=== PATIENT | male | born 1965 | race Caucasian/White ===

== ENCOUNTER 2024-02-03 11:31 | Outpatient (AMB) | payer OTHER, SELFPAY ==
--- NOTE | 2024-02-03 11:41 | MHC.PC.OV ---
Vital Signs 02/03/24 11:47 Height 5 ft 10.28 in Weight 269 lb BMI 38.3 BP 120/80 Blood Pressure Location Lt brachial Position Sitting Respiration 20 Pulse 78 Pulse Source Palpation Intake Visit Reasons: [facility] from [facility] Intake Note: er follow up [stroke] Allergies No Known Allergies Allergy (Verified 02/03/24 11:41) Tobacco use date assessed: 02/03/24 Dental Screening Dental Screen Date: 02/03/24 Did you have a dental visit in the last 12 months?: No Did you have a dental problem in the last 6 months where you did not have access to dental care?: Yes Was dental information given to patient?: Yes HPI HPI Comments History of Present Illness Details 58 year old male with past medical history of PE previously not on AC, recent CVA presenting to [facility] care/hospital follow up He was hospitalized from January-January 15/2024 at [facility]. He presented with 2 day history of gait disturbance, dizziness. CTA head negative. bilateral mild upper cervical adenopathy noted. MRI brain showed small actue infarct in the left thalamus. Started on dual antiplalet asa plavix. Echo normal. Tele no arrythmia. Has f/up stroke clinic. Recommended hypercoaguable work up but not performed ROS CONSTITUTIONAL: Denies weight loss, fever and chills. HEENT: Denies changes in vision and hearing. RESPIRATORY: Denies SOB and cough. CV: Denies palpitations and CP GI: Denies abdominal pain, nausea, vomiting and diarrhea. : Denies dysuria and urinary frequency. MSK: Denies new myalgia and joint pain. SKIN: Denies rash and pruritus. NEUROLOGICAL: Denies headache PSYCHIATRIC: Denies recent changes in mood. PHYSICAL EXAM: GENERAL: Alert and oriented x 3. NAD EYES: EOMI. Anicteric. HENT: Moist mucous membranes. No scleral icterus. palpable cervical LN LUNGS: Clear to auscultation bilaterally. CARDIOVASCULAR: Regular rate and rhythm. No murmur. No JVD. ABDOMEN: Soft, non-tender +bs EXTREMITIES: No edema. Non-tender. SKIN: No rashes or lesions. Warm. NEUROLOGIC: No focal neurological deficits. CN II-XII grossly intact PSYCHIATRIC: Cooperative. 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 77869 - PHQ-9 Billing: Patient declined-do not bill Source: Developed by Drs. Narinder Doe, Ismael Rodrigues and colleagues, with an educational adam from [employer]. Thrive Questionnaire Date Thrive assessed: 02/03/24 I am a: Patient What is your living situation today?: I have a steady place to live Within the past 12 months, did the food you bought not last and you didn't have the money to get more?: Never true Within the past 12 months, did you worry whether your food would run out before you got money to buy more?: Never true Do you have trouble paying for medicines?: No Do you have trouble getting transportation to medical appointments?: No Do you have trouble paying your heating and electricity bill?: No Do you have trouble taking care of your child, family member or friend?: No Do you have trouble with day-to-day activities such as bathing, preparing meals, shopping, managing finances, etc.?: No Are you currently unemployed and looking for a job?: No Are you interested in more education?: No Please select the resources that you would like help with: None Currently or been in a relationship where the following occur: No concerns reported THRIVE Score: 0 AUDIT C Alcohol Use Questionnaire (AUDIT-C) 1. How often do you have a drink containing alcohol?: 2-3 times a week 2. How many drinks containing alcohol do you have on a typical day when you are drinking?: 7 to 9 3. How often do you have six or more drinks on one occasion?: Weekly Total Score: 9 Score Reviewed/Action Taken: Yes RAMONITA-7 AMB Questionnaire RAMONTIA-7 Date RAMONITA - 7 assessed: 02/03/24 Source: Developed by Drs. Narinder Doe, Ismael Rodrigues and colleagues, with an educational adam from [employer]. RAMONITA-7 Assessment Billing RAMONITA-7 Assessment Tool: pt declined-do not bill Physical exam (Primary Care) Vital Signs: Last Vital Signs Pulse 78 02/03/24 11:47 Resp 20 02/03/24 11:47 BP 120/80 02/03/24 11:47 BMI result Body Mass Index 38.3 Tobacco/Smoking Status: Tobacco use Status Tobacco use date assessed 02/03/24 02/03/24 11:46 Patient Tobacco Use Status Never used Tobacco 02/03/24 11:46 e-Cigarette/Vaping Use Never Used 02/03/24 11:46 Thrive Assessment: Date of Thrive Assessment Date Thrive assessed 02/03/24 02/03/24 11:59 Currently or been in a relationship where the following occur: No concerns reported Assessment and Plan Assessment & Plan (1) Encounter to establish care: Code(s): Z76.89 - Persons encountering health services in other specified circumstances Plan: 58 year old male presenting to establish care. Past medical, surgical, social and family history reviewed (2) History of pulmonary embolism: Code(s): Z86.711 - Personal history of pulmonary embolism Plan: hypercoaguable labs ordered (3) Cervical adenopathy: Code(s): R59.0 - Localized enlarged lymph nodes (4) Neck pain on left side: Code(s): M54.2 - Cervicalgia (5) CVA (cerebral vascular accident): Code(s): I63.9 - Cerebral infarction, unspecified Qualifiers: CVA mechanism: unspecified Qualified Code(s): I63.9 - Cerebral infarction, unspecified Plan: follow up stroke clinic Orders: Orders Lyme IgG/IgM w/reflex to WB 02/03/24 Z86.711 - Personal history of pulmonary embolism, R59.0 - Localized enlarged lymph nodes, M54.2 - Cervicalgia, I63.9 - Cerebral infarction, unspecified Lupus Anticoagulant Panel 02/03/24 Z86.711 - Personal history of pulmonary embolism, R59.0 - Localized enlarged lymph nodes, M54.2 - Cervicalgia, I63.9 - Cerebral infarction, unspecified Homocysteine 02/03/24 Z86.711 - Personal history of pulmonary embolism, R59.0 - Localized enlarged lymph nodes, M54.2 - Cervicalgia, I63.9 - Cerebral infarction, unspecified Mixing Study (PT/PTT) 02/03/24 Z86.711 - Personal history of pulmonary embolism, R59.0 - Localized enlarged lymph nodes, M54.2 - Cervicalgia, I63.9 - Cerebral infarction, unspecified Monotest 02/03/24 Z86.711 - Personal history of pulmonary embolism, R59.0 - Localized enlarged lymph nodes, M54.2 - Cervicalgia, I63.9 - Cerebral infarction, unspecified Comprehensive Met. Panel 02/03/24 Z86.711 - Personal history of pulmonary embolism, R59.0 - Localized enlarged lymph nodes, M54.2 - Cervicalgia, I63.9 - Cerebral infarction, unspecified Referrals Ear/Nose/Throat Referral I63.9 - Cerebral infarction, unspecified, M54.2 - Cervicalgia, R59.0 - Localized enlarged lymph nodes, Z86.711 - Personal history of pulmonary embolism Medications: New pravastatin 40 mg PO DAILY 90 tabs 3RF Coding Level of Care Code Est Pt Level 4 (18757) Diagnoses Encounter to establish care Z76.89 History of pulmonary embolism Z86.711 Cervical adenopathy R59.0 Neck pain on left side M54.2 Cerebrovascular accident (CVA), unspecified mechanism I63.9 CVA mechanism: unspecified
[2024-02-03 11:47] VITALS: BP 120/80; PULSE 78; RESP 20; BMI 38.3
== END 2024-02-03 12:30 | disposition home or self-care (01) ==
PROVIDERS: Visit Provider Internal Medicine
DX: R59.0 Localized enlarged lymph nodes (principal); M54.2 Cervicalgia; Z86.73 Personal history of transient ischemic attack (TIA), and cerebral infarction without residual deficits; Z76.89 Persons encountering health services in other specified circumstances; Z86.711 Personal history of pulmonary embolism
CPT/HCPCS: 99214

== ENCOUNTER 2024-04-07 15:57 | Outpatient (AMB) | payer OTHER, SELFPAY ==
--- NOTE | 2024-04-07 16:01 | A.OFFPC_ITS ---
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 He was discharged with a few days of losartan but stopped when rx ended as blood pressures have been normal. He says since his CVA has had multiple fairly severe headaches. Start of dull in the morning and then worsen in severity over the course of the day. When his headaches are bad his blood pressure is elevated. Otherwise his blood pressure has been normal. He was hospitalized from January-January 15/2024 at [facility]. He presented with 2 day history of gait disturbance, dizziness. CTA head negative. bilateral mild upper cervical adenopathy noted. MRI brain showed small actue infarct in the left thalamus. Started on dual antiplalet asa plavix. Off plavix. Couldnt tolerate atorvastatin. doing ok Tele no arrythmia. Has f/up stroke clinic -he says he never heard from them for an appointment. Recommended hypercoaguable work up but not performed or referred to hematology. Echo reviewed today with low normal EF 50-55%, inferior basal hypokinesis noted Reports frequent abd pain. Goes from mid right abdomen down to upper right thigh. Does not feel like its coming around back. Feels the pain more when he is laying down. More frequent recently. No worse with eating or not eating. Denies bowel changes. Never had colonoscopy ROS see HPI PHYSICAL EXAM: GENERAL: Alert and oriented x 3. NAD EYES: EOMI. Anicteric. HENT: Moist mucous membranes. No scleral icterus. palpable cervical LN LUNGS: Clear to auscultation bilaterally. CARDIOVASCULAR: Regular rate and rhythm. No murmur. No JVD. ABDOMEN: Soft, non-tender +bs, ventral herniation EXTREMITIES: No edema. Non-tender. SKIN: No rashes or lesions. Warm. NEUROLOGIC: No focal neurological deficits. CN II-XII grossly intact PSYCHIATRIC: Cooperative. 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 2. Feeling down, depressed, or hopeless: not at all 3. Trouble falling or staying asleep, or sleeping too much: more than half the days 4. Feeling tired or having little energy: more than half the days 5. Poor appetite or overeating: more than half the days 6. Feeling bad about yourself - or that you are a failure or have let yourself or your family down: not at all 7. Trouble concentrating on things, such as reading the newspaper or watching television: not at all 8. Moving or speaking so slowly that other people could have noticed. Or the opposite - being so fidgety or restless that you have been moving around a lot more than usual: more than half the days 9. Thoughts that you would be better off or of hurting yourself in some way: not at all Depression Screening Interpretation: Positive Depression Screening Follow-up: Declines treatment Depression Screening Done: Yes 99364 - PHQ-9 Billing: Yes Source: Developed by Drs. Narinder Doe, Emeli Tai, Ismael Maldonado and colleagues, with an educational adam from [employer]. Thrive Questionnaire Date Thrive assessed: 04/07/24 I am a: Patient What is your living situation today?: I have a steady place to live Within the past 12 months, did the food you bought not last and you didn't have the money to get more?: Never true Within the past 12 months, did you worry whether your food would run out before you got money to buy more?: Never true Do you have trouble paying for medicines?: No Do you have trouble getting transportation to medical appointments?: No Do you have trouble paying your heating and electricity bill?: No Do you have trouble taking care of your child, family member or friend?: No Do you have trouble with day-to-day activities such as bathing, preparing meals, shopping, managing finances, etc.?: No Are you currently unemployed and looking for a job?: No Are you interested in more education?: No Please select the resources that you would like help with: None Currently or been in a relationship where the following occur: No concerns reported THRIVE Score: 0 AUDIT C Alcohol Use Questionnaire (AUDIT-C) 1. How often do you have a drink containing alcohol?: 2-3 times a week 2. How many drinks containing alcohol do you have on a typical day when you are drinking?: 3 or 4 3. How often do you have six or more drinks on one occasion?: Monthly Total Score: 6 RAMONITA-7 AMB Questionnaire RAMONITA-7 Date RAMONITA - 7 assessed: 02/03/24 Feeling nervous, anxious, or on edge: 0 = Not at all Not being able to stop or control worryin = Not at all Worrying too much about different things: 0 = Not at all Trouble relaxin = Not at all Being so restless that it is hard to sit still: 0 = Not at all Becoming easily annoyed or irritable: 0 = Not at all Feeling afraid as if something awful might happen: 0 = Not at all Total RAMONITA-7 score (0-4 normal; 5-9 mild; 10-14 moderate; 15-21 severe): 0 Source: Developed by Drs. Narinder Doe, Emeli Tai, Ismael Maldonado and colleagues, with an educational adam from [employer]. RAMONITA-7 Assessment Billing RAMONITA-7 Assessment Tool: RAMONITA-7 Assessment 67516 Physical exam (Primary Care) Vital Signs: Last Vital Signs Pulse 101 H 04/07/24 16:05 Resp 16 04/07/24 16:05 BP 114/74 04/07/24 16:05 Pulse Ox 97 04/07/24 16:05 Oxygen Delivery Method Room Air 04/07/24 16:05 BMI result Body Mass Index 37.3 Tobacco/Smoking Status: Tobacco use Status Tobacco use date assessed 02/03/24 04/07/24 16:09 Patient Tobacco Use Status Never used Tobacco 04/07/24 16:09 e-Cigarette/Vaping Use Never Used 04/07/24 16:09 Depression Screening Interpretation: Positive Depression Screening Follow-up: Declines treatment Thrive Assessment: Date of Thrive Assessment Date Thrive assessed 04/07/24 04/07/24 16:12 Currently or been in a relationship where the following occur: No concerns reported Coding Level of Care Code Est Pt Level 4 (76290) Est Pt Prev Care 40-64y(30879) Diagnoses Physical exam Z00.00 Frequent headaches R51.9 History of hypercoagulable state Z86.2 Generalized abdominal pain R10.84 Abdominal location: generalized Additional Codes RAMONITA-7 Assessment Billing - RAMONITA-7 Assessment Tool: RAMONITA-7 Assessment 39356 ([id number]) Assessment & Plan Assessment & Plan (1) Physical exam: Code(s): Z00.00 - Encounter for general adult medical examination without abnormal findings Category: Medical Plan: Preventive measures for age reviewed Recommend colon cancer screening. Declines colonoscopy. cologuard sent (2) Frequent headaches: Code(s): R51.9 - Headache, unspecified Category: Medical Plan: Narrow oropharynx, [place], apnea-sleep study ordered Referral to neurology (3) History of hypercoagulable state: Code(s): Z86.2 - Personal history of diseases of the blood and blood-forming organs and certain disorders involving the immune mechanism Category: Medical Plan: Referral to hematology for hypercoaguable work up (4) Abdominal pain: Code(s): R10.9 - Unspecified abdominal pain Category: Medical Qualifiers: Abdominal location: generalized Qualified Code(s): R10.84 - Generalized abdominal pain Plan: CT abd/pelvis ordered. Orders: Orders Prostate Specific Antigen 04/07/24 Z12.5 - Encounter for screening for malignant neoplasm of prostate RT home sleep study 04/07/24 R06.81 - Apnea, not elsewhere classified, R06.83 - Snoring CT abdomen pelvis wo/w IV con 04/07/24 K43.9 - Ventral hernia without obstruction or gangrene, R10.9 - Unspecified abdominal pain Lyme IgG/IgM w/reflex to WB 04/07/24 M25.462 - Effusion, left knee Referrals Hematology & Oncology Referral I63.9 - Cerebral infarction, unspecified, Z86.2 - Personal history of diseases of the blood and blood-forming organs and certain disorders involving the immune mechanism, Z86.711 - Personal history of pulmonary embolism Cardiology Referral I63.9 - Cerebral infarction, unspecified, R93.1 - Abnormal findings on diagnostic imaging of heart and coronary circulation Cologuard Test Z12.11 - Encounter for screening for malignant neoplasm of colon, Z12.12 - Encounter for screening for malignant neoplasm of rectum Neurology Referral I63.9 - Cerebral infarction, unspecified, R06.81 - Apnea, not elsewhere classified, R06.83 - Snoring, R51.9 - Headache, unspecified Medications: New pravastatin 40 mg PO BEDTIME 90 tabs 3RF
[2024-04-07 16:05] VITALS: BP 114/74; PULSE 101; RESP 16; O2SAT 97; BMI 37.3
== END 2024-04-07 17:05 | disposition home or self-care (01) ==
PROVIDERS: PCP Internal Medicine; Visit Provider Internal Medicine
DX: Z00.00 Encounter for general adult medical examination without abnormal findings (principal); R51.9 Headache, unspecified; R10.84 Generalized abdominal pain; Z86.2 Personal history of diseases of the blood and blood-forming organs and certain disorders involving the immune mechanism

== ENCOUNTER → 2024-04-07 15:57 | Outpatient (BNVA) | payer OTHER, SELFPAY | PROVIDERS: PCP Internal Medicine; Visit Provider Internal Medicine | DX: Z00.01 Encounter for general adult medical examination with abnormal findings (principal); R51.9 Headache, unspecified; R10.84 Generalized abdominal pain; Z86.2 Personal history of diseases of the blood and blood-forming organs and certain disorders involving the immune mechanism | CPT/HCPCS: 96127 ==

== ENCOUNTER → 2024-04-16 09:30 | Outpatient (REF) | payer OTHER, SELFPAY | LOC: HO.SL 09:30 | PROVIDERS: PCP Internal Medicine; Visit Provider Internal Medicine | DX: G47.33 Obstructive sleep apnea (adult) (pediatric) (principal); R06.81 Apnea, not elsewhere classified; R06.83 Snoring | CPT/HCPCS: 95806 ==

== ENCOUNTER → 2024-04-17 09:40 | Outpatient (BNV) | payer OTHER, SELFPAY | PROVIDERS: PCP Internal Medicine; Visit Provider Internal Medicine | DX: G47.33 Obstructive sleep apnea (adult) (pediatric) (principal) | CPT/HCPCS: 95806 ==

== ENCOUNTER 2024-07-15 08:36 | Outpatient (AMB) | payer OTHER, SELFPAY ==
--- NOTE | 2024-07-15 08:37 | A.OFFVIS_ITS ---
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 The pleasant 58-year-old male who in 2021 had unprovoked pulmonary embolism. Was treated for year with oral anticoagulant. He does not recall having a full hypercoagulable workup as he said the journal box inspector at that time had told him that he was on anticoagulation and could not complete the testing. He was treated with Eliquis for year and then this was discontinued. He was doing well till last summer when he had sudden-onset neurologic symptoms and was noted to have new CVA. Since then he has been having some frequent headaches. No focal neurologic deficits. He has been started on aspirin and pravastatin therapy. Reviewed the CTA from [facility] appears to be not having any significant intracranial or extracranial disease. Echocardiogram done was showing normal LV ejection fraction with mildly dilated left atrium without other major valvular abnormalities. He denies any exertional chest pain or shortness of breath. His last LDL was 102 mg/dL. 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 Current occupational exposures/hazards: No Cognitive needs: No Hearing needs: No Vision needs: No Review of Systems Const Denies chills, Denies daytime sleepiness, Denies fatigue, Denies fever(s), Denies frequent falls, Denies poor appetite, Denies snoring, Denies stops deneen thing during sleep, Denies weakness, Denies weight gain and Denies weight loss Eyes Denies loss of vision ENT Reports dizziness and Denies hearing loss Card Denies chest pain, Denies claudication, Denies leg edema, Denies lightheadedness, Denies palpitations, Denies dyspnea, Denies dyspnea on exertion and Denies orthopnea Resp Denies cough, Denies excessive phlegm production, Denies dyspnea, Denies dyspnea on exertion, Denies snoring and Denies wheezing GI Denies abdominal pain, Denies hematochezia, Denies change in bowel habits, Denies nausea and Denies vomiting Denies dysuria and Denies urinary frequency Musc Denies arthralgias, Denies muscle weakness, Denies numbness and Denies other (frequent falls) Skin/Breast Denies nail changes and Denies rash Neuro Denies Abnormal speech present, Reports dizziness, Denies frequent falls, Denies loss of vision, Denies memory loss, Denies numbness and Denies weakness Psych Denies depression and Denies memory loss Endo Denies fatigue and Denies palpitations Alfredo/Lymph Reports easy bruising and Reports other (anemia) Aller/Immun Denies wheezing Physical Exam Vital Signs: Last Vital Signs Pulse 75 07/15/24 08:39 BP 120/80 07/15/24 08:39 BMI result Body Mass Index 35.8 Const General: cooperative, comfortable, no acute distress, alert, awake and Physically active Nutritional Appearance: obese Orientation/consciousness: patient oriented x3 Limitations: no limitations HEENT Head: Yes normocephalic and Yes atraumatic Neck Neck: Yes trachea midline, Yes supple and Yes no JVD Resp Effort & Inspection: normal respiratory effort Auscultation: clear to auscultation bilaterally Cardio Jugular venous distension: no JVD Palpation: normal PMI Rate: regular rate Rhythm: regular rhythm Heart sounds: S1 normal heart sound present, S2 normal heart sound present, no click, no gallops, no murmurs and no rubs GI Auscultation: normal bowel sounds Skin General skin exam: no rashes or lesions noted Neuro General: patient oriented x3 and no focal motor deficits Speech: No Abnormal speech present Extrem General: Yes no clubbing, cyanosis or edema Office Procedures EKG Details: EKG shows normal sinus rhythm with voltage criteria for LVH [id number], Complete Assessment & Plan Assessment & Plan (1) CVA (cerebral vascular accident): Code(s): I63.9 - Cerebral infarction, unspecified Category: Medical Qualifiers: CVA mechanism: unspecified Qualified Code(s): I63.9 - Cerebral infarction, unspecified Plan: Middle-aged man with no obvious risk factors except for pulmonary embolic event 2 years ago unprovoked treated for year with anticoagulation as per guidelines followed by a stroke last summer. This is concerning for possibility of hypercoagulable state. Have taken the liberty to refer to hematology for further workup. Meanwhile without any obvious diagnose I think he needs further cardiac workup to evaluate for cardioembolic source with a structural evaluation as well as evaluation for possible atrial fibrillation. Echocardiogram does show mild left atrial enlargement for unclear reason with low normal LV ejection fraction. Question underlying obstructive sleep apnea. This needs to be pursued as a workup. I would meanwhile suggest him to undergo a 30 day event monitor with mobile telemetry to assess for presence of atrial fibrillation. Also suggest a transesophageal echocardiogram to evaluate for and confirm absence PFO as well as any other potential cardiac source for embolic events. This was discussed with him. Given unknown source of stroke, small vessel disease or plaque in the aorta is possible and recommend high-intensity statin therapy. Have taken the liberty to switch his pravastatin to atorvastatin 40 mg daily. Follow-up lipid panel in 2 months time to target goal LDL closer to 60 mg/dL. For now continue low-dose aspirin therapy. Workup for stroke and management plan was discussed in details. He is agreeable. Will follow up in the clinic in 2 months time, sooner p.r.n.. Thank you for allowing me to partake in his care Orders: Orders ECG 30 day event monitor Today I63.9 - Cerebral infarction, unspecified CA echo transesophageal w con Today I63.9 - Cerebral infarction, unspecified Referrals Hematology & Oncology Referral I63.9 - Cerebral infarction, unspecified Medications: New atorvastatin 40 mg PO DAILY 30 tabs 5RF Coding Level of Care Code New Pt Level 4 (71522) Complex EM visit Add On G2211 Diagnoses Cerebrovascular accident (CVA), unspecified mechanism I63.9 CVA mechanism: unspecified CPT Codes EKG - CPT: 63636-[id number], Complete ([id number])
[2024-07-15 08:39] VITALS: BP 120/80; PULSE 75; BMI 35.8
--- OUTSIDE RECORDS SUMMARY | 2024-07-15 08:41 | XMS_ITS | Continuity of Care Document ---
Author Organization [place] - [facility], [facility] Address [address] [place] [address] Care Team Providers Care Retail Pharmacy Technician Name Role Phone BRIANA WICK Primary Care Provider Assessment Encounter Date Assessment Date Assessment LastModified by Organization Details LastModified Time 04/16/2024 04/16/2024 Physical examina tion was benign today, there is no evidence of enlargement of lymph nodes as noted on his CT angio from January. He does report some intermittent discomfort in the area along his right and left sternocleidomastoid muscle without any focal lymph node or specific mass. No specific intervention is recommended, he may follow-up as needed [email or web address] Not available 04/16/2024 16:14:07 Plan of Treatment Reminders Order Date Submit Date Provider Last Modified By Organization Details Last Modified Time Details Appointments None record ed. Lab None record ed. Referral None record ed. Procedures None record ed. Surgeries None record ed. Imaging None record ed. Medication Orders None record ed. Patient TargetsNo targets recorded. Patient InstructionsNo instructions recorded. Reason for Referral None Reported. Problems Name Problem SNOMED Code Status Onset Date Resolution Date Notes Provider Name and Address Organization Details Recorded Time Cervical lymphadenitis 4188684 Active 2023 ZHAO LAWS MD [address] [place] [address], [id number], [place] - [facility] 16:13:22 Problem Notes None recorded. Medical Equipment None Reported. Medications Name Sig Start Date Stop Date Status Note LastModified by Organization Details LastModified Time atorvastati n 80 mg tablet TAKE 1 TABLET BY MOUTH DAILY AT BEDTIME active Not Available Not Available No t Available pravastatin 40 mg tablet TAKE 1 TABLET BY MOUTH DAILY active Not Available Not Available No t Available clopidogrel 75 mg tablet TAKE 1 TABLET BY MOUTH DAILY FOR 21 DAYS active Not Available Not Available No t Available aspirin 81 mg tablet,cristina yed release TAKE 1 TABLET BY MOUTH DAILY active Not Available Not Available No t Available meclizine 25 mg tablet TAKE 1 TABLET BY MOUTH THREE TIMES DAILY X 7 DAYS NEEDED FOR DIZZINESS 04/16 completed Not Available Not Available Not Available oxycodone 5 mg tablet TAKE 2 TABLETS BY MOUTH EVERY 6 HOURS FOR 3 DAYS NEEDED FOR PAIN 04/16 completed Not Available Not Available Not Available Vitals Date Recorded Body height Body mass index (BMI) Body weight Provider Name and Address Organization Details Last Updated DateTime 04/16/2024 180.34 cm 36.4 kg/m2 890710.61 g Lalita Mathews [place] - [facility] 04/16/2024 15:38:51 Social History None recorded. Functional Status None recorded. Mental Status None recorded. Family History Nothing Reported. Medical History Condition Response Hyperlipidemia Y Headaches Y Migraines Y Stroke Y Past Encounters Encounter ID Performer Location Encounter Start Date Encounter Closed Date Diagnosis/Indication Diagnosis SNOMED-CT Code Diagnosis ICD10 Code Diagnosis Note [id number] ZHAO LAWS MD [facility] [address] [address] 04/16/2024 15:35:24 04/16/2024 16:18:22 Cervical lymphadenitis 8902968 I88.9 Health Concerns Section Related Observation LastModified by Organization Detai ls LastModified Time None Recorded Concern Status LastModified by Organization Details LastModified Time None Recorded Payers Encounter Date Sequence Insurance Name Policy Number Policy Vega Covered Member ID Vega Member ID Guarantor Name 04/16/2024 1 [facility] [id number] 1 Gelacio Reyes [id number] Gelacio Reyes Notes Date Note Type Note Provider Name and Address Organization Details Recorded Time text/html enlarged lymph nodeintermittent sore in neck over past 6 monthsdental extractions a few months ago, no complicationstobacco - deniesno dysphagia for liquids or solids 01/14/2024 ER visit for change in gait and dizziness. Workup with MRI showed acute small infarct of thalamus, anticoagulation initiated. Additional imaging with CTA of the neck with incidental finding of bilateral level 2 lymph nodes measuring 16 mm, bilateral suboccipital lymph node measuring 11 mm on the left. 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
--- OUTSIDE RECORDS SUMMARY | 2024-07-15 08:41 | XMS_ITS | Data Portability ---
Author Organization [place] - [facility], [facility] Address [address] [place] [phone] Care Team Providers Care Director Public Policy Name Role Phone KathyBRIANA MCNALLY Primary Care Provider Assessment Encounter Date Assessment [...] Address Organization Details Recorded Time Cervical lymphadenitis 1121420 Active 2023 ZHAO LAWS MD [address] [facility] [address], [place], [address] [place] [facility] 16:13:22 Problem Notes None recorded. Medical Equipment [...] Updated DateTime 04/16/2024 180.34 cm 36.4 kg/m2 908455.61 g Lalita Mathews [place] - [facility] 04/16/2024 15:38:51 Social History None recorded. Functional Status None recorded. Mental Status None recorded. Family History Nothing Reported. Medical History Condition Response Hyperlipidemia Y Migraines Y Stroke Y Headaches Y Past Encounters Encounter ID Performer Location Encounter Start Date Encounter Closed Date Diagnosis/Indication Diagnosis SNOMED-CT Code Diagnosis ICD10 Code Diagnosis Note [id number] ZHAO LAWS MD [facility] [address] [address] 04/16/2024 15:35:24 04/16/2024 16:18:22 Cervical lymphadenitis 8550940 I88.9 Health Concerns Section Related Observation LastModified by Organization Detai ls LastModified Time None Recorded Concern Status LastModified by Organization Details LastModified Time None Recorded Advance Directives Directive None Recorded Payers Encounter Date Sequence Insurance Name Policy Number Policy Vega Covered Member ID Vega Member ID Guarantor Name 04/16/2024 1 [facility] [id number] 1 Gelacio Reyes [id number] Gelacio Reyes Notes Date Note Type Note Provider Name and Address Organization Details Recorded Time 4 text/html enlarged lymph nodeintermittent sore in neck [...] - 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
== END 2024-07-15 09:12 | disposition home or self-care (01) ==
PROVIDERS: PCP Internal Medicine; Visit Provider Internal Medicine Cardiovascular Disease
DX: I63.9 Cerebral infarction, unspecified (principal)
CPT/HCPCS: 93010; 99204

== ENCOUNTER → 2024-07-15 08:36 | Outpatient (BNVA) | payer OTHER, SELFPAY | PROVIDERS: PCP Internal Medicine; Visit Provider Internal Medicine Cardiovascular Disease | DX: Z86.73 Personal history of transient ischemic attack (TIA), and cerebral infarction without residual deficits (principal); Z86.711 Personal history of pulmonary embolism; Z79.82 Long term (current) use of aspirin; Z79.899 Other long term (current) drug therapy | CPT/HCPCS: 93005 ==

== ENCOUNTER → 2024-07-24 11:15 | Outpatient (BNV) | payer OTHER, SELFPAY | PROVIDERS: PCP Internal Medicine; Visit Provider Internal Medicine Cardiovascular Disease | DX: Q21.12 Patent foramen ovale (principal); Q24.8 Other specified congenital malformations of heart; I34.0 Nonrheumatic mitral (valve) insufficiency; I70.0 Atherosclerosis of aorta; I37.1 Nonrheumatic pulmonary valve insufficiency; I35.1 Nonrheumatic aortic (valve) insufficiency | CPT/HCPCS: 76376; 93315; 93320; 93325 ==

== ENCOUNTER 2024-07-24 11:28 | Day surgery (SDC) | payer OTHER, SELFPAY ==
--- NOTE | 2024-07-23 13:21 | HO.ANESPROP2 ---
Documented by User: Natalie Kelley NP 07/23/24 13:24 HPI - Anesthesia Eval Consult details Narrative: 58yo M for Transesophageal Echocardiogram with bubble study Hx unprovoked PE and CVA PMFSH Active Problems Active Problems: All Active Problems Physical exam (Acute) Frequent headaches (Acute) Nocturnal headaches (Acute) Swelling of left knee joint (Acute) Ventral hernia (Acute) Abdominal pain (Acute) Snoring (Acute) Apnea (Acute) Screening for prostate cancer (Acute) Abnormal echocardiogram (Acute) History of hypercoagulable state (Acute) Encounter to establish care (Acute) History of pulmonary embolism (Acute) Cervical adenopathy (Acute) Neck pain on left side (Acute) CVA (cerebral vascular accident) (Acute) Past Medical History Medical History (Updated 07/24/24 @ 12:03 by Elma Kasper RN) Snores CVA (cerebral vascular accident) Pulmonary embolism Surgical History Surgical History (Updated 07/24/24 @ 11:57 by Elma Kasper RN) History of total right knee replacement History of back surgery Social History Social History Housing: House Patient Tobacco Use Status: Never used Tobacco e-Cigarette/Vaping Use: Never Used Second Hand Smoke Exposure: No Use of substances other than those prescribed or required for medical reasons: No Are you DNR?: No Advance Directives: No Advance Directives Information Provided: Yes service: No Current occupational status: employed 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 Current occupational exposures/hazards: No Cognitive needs: No Hearing needs: No Vision needs: No Meds Allergies Allergy/AdvReac Type Severity Reaction Status Date / Time No Known Allergies Allergy Verified 04/07/24 16:04 Home Medications ?Medication ?Instructions ?Recorded ?Confirmed ?Last Taken ?Type aspirin 81 mg tablet,delayed 81 mg PO DAILY 02/14/24 07/24/24 Unknown History release (Adult Low Dose Aspirin) Exam Narrative Narrative: EKG 07/2024 Details: EKG shows normal sinus rhythm with voltage criteria for LVH Per cardiac note: Echocardiogram does show mild left atrial enlargement for unclear reason with low normal LV ejection fraction. Assessment and Plan Assessment Anesthesia Assessment: Chart Reviewed Documented by User: Audelia Saleh MD 07/24/24 12:47 PMF Past Medical History Medical History (Updated 07/24/24 @ 12:03 by Elma Kasper, RN) Snores CVA (cerebral vascular accident) Pulmonary embolism Family History Family history of problems with anesthesia: No Surgical History Surgical History (Updated 07/24/24 @ 11:57 by Elma Kasper, RN) History of total right knee replacement History of back surgery History of Problems with Anesthesia: No Social History Social History Housing: House Patient Tobacco Use Status: Never used Tobacco e-Cigarette/Vaping Use: Never Used Second Hand Smoke Exposure: No Use of substances other than those prescribed or required for medical reasons: No Are you DNR?: No Advance Directives: No Advance Directives Information Provided: Yes service: No Current occupational status: employed 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 Current occupational exposures/hazards: No Cognitive needs: No Hearing needs: No Vision needs: No Meds Allergies Allergy/AdvReac Type Severity Reaction Status Date / Time No Known Allergies Allergy Verified 04/07/24 16:04 Home Medications ?Medication ?Instructions ?Recorded ?Confirmed ?Last Taken ?Type aspirin 81 mg tablet,delayed 81 mg PO DAILY 02/14/24 07/24/24 Unknown History release (Adult Low Dose Aspirin) Exam Airway Mallampati Class: III TM Dist: >3cm Neck ROM: Full Assessment and Plan Assessment Anesthesia Assessment: Anesthesia Plan Discussed Final Anesthetic Review Family History of Problems with Anesthesia: No History of Problems with Anesthesia: No NPO: Yes ASA Class: III Final Preanesthetic Review: No Changes in Pt Med Stat, Meds/Allgs Chart Reviewed, Consent Obtained/Reviewed and Anes Risks/Benef Reviewed Patient Risk: Intermediate Procedure Risk: Low Anesthetic Plan Anesthetic Plan: TIVA Disposition: Standard PACU
--- NOTE | 2024-07-24 11:15 | CA_ITS ---
Transesophageal Echocardiogram Patient (Last, First, Middle): Gelacio Reyes, Gender: Male Date of : 1965 Age: 58 Procedure Date: 07/24/2024 Procedure Type: Transesophageal Echocardiogram Location: OP Height: 167.64 cm Weight: 113. kg BSA: 2.20 m2 Heart Rate: bpm Community Service Coordinator: WILLIAN Referring MD: Hari Borrego MD Visitor Services Information Assistant: Hari Borrego MD Symptoms: CVA Conclusion: ??? 1. 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 Normal LV ejection fraction 55-60% 3. Trivial aortic regurgitation 4. No intracardiac thrombi, masses, vegetations 5. Exep-il-yrfebyvz atherosclerotic changes noted in the descending thoracic aorta 6. No gross abnormality of pericardium Findings Procedure Information Consent was obtained prior to the procedure. Pre JOSE ANGEL oral cavity was checked and revealed mild overcrowding. The adult 3D probe was passed with no difficulty. Left Ventricle Normal left ventricular size, thickness, and systolic function. The visually estimated ejection fraction is between 55-60%. Spectral Doppler is indicative of an impaired relaxation filling pattern. Right Ventricle Normal right ventricular cavity size and systolic function. Atria There is a highly mobile atrial septum noted. Contrast study for right to left shunting is mildly positive. Contrast study for right to left shunting is mildly positive with Valsalva maneuver. Patent foramen ovale detected using by color Doppler and contrast. There is shunt reversal with the release phase of the Valsalva maneuver. There is no evidence of thrombus or mass in the left atrium. the left atrial free of any clots or masses. The left atrial appendage is free of any thrombi or masses. The left upper, right upper and right lower pulmonary during normal into the left atrium. There is no evidence of thrombus or mass in the right atrium. Right atrial and free of any masses or clots. The IVC and SVC drain normally into the right atrium. There is a small rudimentary eustachian valve noticed at the junction of IVC and right atrium. Aortic Valve Normal aortic valve structure and function. There is no aortic valve stenosis. There is trace (trivial) aortic valve regurgitation. Mitral Valve There is mild anterior and posterior mitral leaflet thickening. There is mild mitral valve regurgitation. There is no mitral valve stenosis. Pulmonic Valve The pulmonic valve is normal. There is trace to mild pulmonic valve regurgitation. Tricuspid Valve Normal tricuspid valve structure. There is trace tricuspid valve regurgitation. The right ventricular systolic pressure is not calculated. Great Vessels All visible segments of the aorta are normal in size. The visualized portions of the pulmonary artery and branches are normal. Ecyu-rh-fjndwuou atherosclerotic changes noted in the descending thoracic aorta Venous The inferior vena cava is normal in size and collapses greater than 50% with inspiration. Pericardium/Pleural There is no evidence of pericardial effusion. Updated by Hari Borrego on 05:57 PM with Status of Final Hari Borrego MD electronically signed on 07/24/2024 5:57:19 PM with status of Final
--- NOTE | 2024-07-24 11:15 | MHC.SHP ---
Pre-Procedural Eval Section A - 24 Hr Update-Section A only Date of Service: 07/24/24 The patient is an INPATIENT: No Changes since office visit: Yes Patient answered all questions; No Cold of Flu in the past 2 weeks, No New Medical Problems and No Changes in Medication The patient has been examined within 24 hours of the surgical procedure. The History & Physical has been completed within 30 days and I have reviewed it.: Yes Section B - Complete if H&P > 30 days Chief Complaint: Cerebral infarction, unspecified Allergies: Allergies Allergy/AdvReac Type Severity Reaction Status Date / Time No Known Allergies Allergy Verified 04/07/24 16:04 Plan I have reviewed the history and physical and performed a pertinent physical examination on my patient. No changes have occurred unless specified. Time Spent With Patient Time: Total time managing care of this patient today ____ minutes.
[2024-07-24 11:58] VITALS: BMI 35.0
[2024-07-24 12:12] VITALS: BP 131/85; PULSE 75; RESP 15; TEMP 36.9; O2SAT 97
[2024-07-24] MEDS: Lactated Ringers 1,000 ML 100 ML IVCONT (12:29)
--- OUTSIDE RECORDS SUMMARY | 2024-07-24 14:04 | XMS_ITS | Data Portability ---
Author Organization [place] - [facility], All[facility] Address [address] [place] [address] Care Team Providers Care Certified Green Building Engineer Name Role Phone KathyBRIANA MCNALLY Primary Care [...] Address Organization Details Recorded Time Cervical lymphadenitis 0193982 Active 2023 ZHAO LAWS MD [address] [facility] [address], [place], [address] [place] [facility] 16:13:22 Problem Notes None recorded. Medical Equipment [...] Updated DateTime 04/16/2024 180.34 cm 36.4 kg/m2 742579.61 g Lalita Mathews [place] - [facility] 04/16/2024 15:38:51 Social History None recorded. Functional Status None recorded. Mental Status None recorded. Family History Nothing Reported. Medical History Condition Response Hyperlipidemia Y Headaches Y Migraines Y Stroke Y Past Encounters Encounter ID Performer Location Encounter Start Date Encounter Closed Date Diagnosis/Indication Diagnosis SNOMED-CT Code Diagnosis ICD10 Code Diagnosis Note [id number] ZHAO LAWS MD [facility] [address] [address] 04/16/2024 15:35:24 04/16/2024 16:18:22 Cervical lymphadenitis 4064450 I88.9 Health Concerns Section Related Observation LastModified by Organization Detai ls LastModified Time None Recorded Concern Status LastModified by Organization Details LastModified Time None Recorded Advance Directives Directive None Recorded Payers Encounter Date Sequence Insurance Name Policy Number Policy Vega Covered Member ID Vega Member ID Guarantor Name 04/16/2024 1 [facility] [id number] 1 Gelacio Reyes [id number] Gelacio Reyes Notes Date Note Type Note [...] - 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
[2024-07-24 14:40] VITALS: BP 117/75; PULSE 74; RESP 16; TEMP 36.2; O2SAT 97
[2024-07-24 14:55] VITALS: BP 135/81; PULSE 75; RESP 16; O2SAT 98
[2024-07-24 15:10] VITALS: BP 141/82; PULSE 66; RESP 18; TEMP 36.5; O2SAT 99
== END 2024-07-24 15:45 | disposition home or self-care (01) ==
PROVIDERS: PCP Internal Medicine; Visit Provider Internal Medicine Cardiovascular Disease
PROC: (CPT 93312; principal; 2024-07-24 13:00)
DX: I63.9 Cerebral infarction, unspecified (principal); Q21.12 Patent foramen ovale; I34.0 Nonrheumatic mitral (valve) insufficiency; I37.1 Nonrheumatic pulmonary valve insufficiency; I70.0 Atherosclerosis of aorta
CPT/HCPCS: 93312; J2003; J2704; Q9957

== ENCOUNTER → 2024-07-31 11:11 | Outpatient (REF) | payer OTHER, SELFPAY ==
--- NOTE | 2024-07-31 11:14 | HM_ITS ---
Cardiac event monitor Indication: CVA Technique: Patient was hooked up to cardiac event monitor from 07/31/2024 to 08/30/2024 for total period of 30 days. Where time was 23.3 days. I was requested to read this study on 09/11/2024. Findings: Baseline was normal sinus rhythm 99.96% of the time with average heart of 77 beats per minute. Minimal heart rate was 48 beats per minute and maximum heart rate 144 beats per minute and short bursts of SVT. No significant pauses noted. No episodes of atrial fibrillation noted. Very rare PACs noted. One short episode of SVT lasting 12 beats at 144 beats per minute No patient reported symptoms or events Conclusion: 1. Baseline was normal sinus rhythm with no significant frequent pauses 2. Rare PACs and 1 episode of SVT noted without episodes of atrial fibrillation 3. No patient reported events MTDD
--- OUTSIDE RECORDS SUMMARY | 2024-07-31 13:20 | XMS_ITS | Clinical Summary ---
Author Organization [facility] Address [address] [place] [address] Care Team Providers Care In Store Banker Name Role Phone Smiley Parker MD Primary Care Provider [phone] Allergies No known active allergies Medications Medication Sig Dispensed Refills Start Date End Date Status apixaban (ELIQUIS) 5 MG TABS tablet Take 5 mg by mouth every 12 (twelve) hours. 0 Active Active Problems Problem Noted Date Diagnosed Date Acute pulmonary embolism without acute cor pulmo nale 03/28/2022 Social History Tobacco Use Types Packs/Day Years Used Date Smoking Tobacco: Never Smokeless Tobacco: Never Alcohol Use Standard Drinks/Week Comments Yes 0 (1 standard drink = 0.6 oz pur e alcohol) Sex and Gender Information Value Date Recorded Sex Assigned at Not on file Gender Identity Not on file Sexual Orientation Not on file Job Start Date Occupation Industry Not on file Not on file Not on file Last Filed Vital Signs Vital Sign Reading Time Taken Comments Blood Pressure 154/86 08/20/2022 10:03 AM EST Pulse 90 08/20/2022 10:03 AM EST Temperature 36.7 ??C (98.1 ??F) 08/20/2022 1 0:03 AM EST Respiratory Rate - - Oxygen Saturation 99% 08/20/2022 10: 03 AM EST Inhaled Oxygen Concentration - - Weight 123.1 kg (271 lb 6.4 oz) 023 10:03 AM EST Height 180.3 cm (5' 11 ) 08/20/2022 10: 03 AM EST Body Mass Index 37.85 08/20/2022 10:03 AM EST Plan of Treatment Health Maintenance Due Date Last Done Comments Hepatitis B Vaccines (1 of 3 - 3-dose series) 1965 Hepatitis C Screening 1965 COVID-19 Vaccine (#1) 06/08/1966 Depression Screening 1977 Preventative Health Evaluation 12/08/1983 DTap / Tdap / Td (1 - Tdap) 1984 Colon Cancer Screening (Colonoscopy) 2010 Shingrix-Zoster Vaccine (1 of 2) 12/08/2015 Influenza Vaccine (#1) 2024 Pneumococcal Vaccine Aged Out No long er eligible based on patient's age to complete this topic RSV Ped < 20 months Aged Out No longe r eligible based on patient's age to complete this topic Care Teams In Store Banker Relationship Specialty Start Date End Date Smiley Parker MD PCP - General Internal Medicine 03/26/22
== END ==
LOC: HO.CARD 11:11
PROVIDERS: PCP Internal Medicine; Visit Provider Internal Medicine Cardiovascular Disease
DX: I63.9 Cerebral infarction, unspecified (principal); I47.10 Supraventricular tachycardia, unspecified
CPT/HCPCS: 93270

== ENCOUNTER 2024-07-31 13:56 | Emergency (ER) | payer OTHER, SELFPAY ==
--- NOTE | 2024-07-31 13:58 | ECG_ITS ---
Test Reason : DIZZINESS Blood Pressure : */* mmHG Vent. Rate : 86 BPM Atrial Rate : 86 BPM P-R Int : 158 ms QRS Dur : 86 ms QT Int : 348 ms P-R-T Axes : 34 23 17 degrees QTcB Int : 416 ms Normal sinus rhythm Septal infarct , age undetermined Abnormal ECG No previous ECGs available Referred By: Generic ED Physician Electronically Signed By: TADEO LAYTON MD
[2024-07-31 14:15] VITALS: BP 131/79; PULSE 88; RESP 18; TEMP 36.8; O2SAT 98; BMI 34.1
--- NOTE | 2024-07-31 14:21 | ED_ITS ---
HPI - Headache General Chief Complaint: Headache Stated Complaint: dizziness Time Seen by Provider: 07/31/24 14:03 History of Present Illness ED Provider: Pepito Sal DO HPI Narrative: 58-year-old male history of unprovoked PE 2021 no longer on apixaban as well as CVA in summer of 2023 presents to the ED from cardiology office visit due to dizziness and atypical headache. Patient states he has had headaches for the past year with no change today. He states he was standing up when he felt dizzy and nauseous. He sat back down and was placed on Holter monitor with plan to return to home with follow-up with Cardiology but due to the persistent symptoms as well as a frontal headache which is typical for him, he was sent to the emergency department for further care. He denies feeling ?drunk? which he had with his previous stroke. He denies any other neurologic symptoms including vision loss, double vision, numbness or weakness of his arms or legs and has mild blurred vision at this time which is typical for his headaches and dizziness. Patient denies chest pain, difficulty breathing, abdominal pain, vomiting or diarrhea. Cardiology records reviewed from office visit on 07/15/2024. Related Data Home Medications ?Medication ?Instructions ?Recorded ?Confirmed aspirin 81 mg tablet,delayed 81 mg PO DAILY 02/14/24 07/24/24 release (Adult Low Dose Aspirin) Previous Rx's ?Medication ?Instructions ?Recorded atorvastatin 40 mg tablet 40 mg PO DAILY #30 tabs 07/15/24 metoclopramide HCl 5 mg tablet 5 mg PO BID PRN headache #14 tabs 07/31/24 (Reglan) Allergies Allergy/AdvReac Type Severity Reaction Status Date / Time No Known Allergies Allergy Verified 07/31/24 14:16 Review of Systems Review of Systems: Yes all other systems are reviewed and are negative [facility] Past Medical History Medical History (Updated 07/31/24 @ 16:34 by Pepito Sal DO) Snores CVA (cerebral vascular accident) Pulmonary embolism Surgical History (Updated 07/24/24 @ 11:57 by Elma Kasper RN) History of total right knee replacement History of back surgery Social History Social History Housing: House Alcohol intake: current Alcohol intake frequency: a few times a week Patient Tobacco Use Status: Never used Tobacco Smoked in Last 30 Days: No e-Cigarette/Vaping Use: Never Used Second Hand Smoke Exposure: No Use of substances other than those prescribed or required for medical reasons: No Advance Directives: Yes Advance Directives Information Provided: Yes Advance Directives on File: No Do you have a plan to hurt others: No Plan service: No Current occupational status: employed 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 Current occupational exposures/hazards: No Cognitive needs: No Hearing needs: No Vision needs: No Physical Exam Vital Signs: Vital Signs: Last Vital Signs Temp 98.3 F 07/31/24 14:15 Pulse 88 07/31/24 14:15 Resp 18 07/31/24 14:15 BP 131/79 07/31/24 14:15 Pulse Ox 98 07/31/24 14:15 O2 Del Method Room Air 07/31/24 14:15 BMI result Body Mass Index 34.1 Constitutional: ?Alert, oriented, speaking in full sentences HEENT: ?Moist mucous membranes Eyes: ?PERRL, EOMI Neck: ?Supple, nontender Chest: ?No chest wall tenderness Respiratory: ?Lungs clear to auscultation, no increased work of breathing Cardio: ?Regular rate and rhythm, no murmur, 2+ radial and DP pulses symmetrically GI: ?Soft, nondistended, nontender Back: ?Normal range of motion, nontender Skin: ?No rash, no lesions Neuro: ?Alert and oriented to person, place and time, Mental Status: Patient is alert, attentive, and fully oriented Speech: Clear and fluent CN II: Visual talbot are full, pupils are equal and briskly reactive to light CN III, IV, : Extra ocular motions are intact in all directions. No ptosis. CN V: Facial sensation intact, both upper and lower face CN VII: Symmetric facial movements CN VIII: Hearing is grossly normal CN IX, X: Symmetric elevation of palate, normal phonation CN XI: Shoulder shrug 5/5 strength bilaterally CN XII: Tongue protrudes midline Motor: No pronator drift bilaterally. 5/5 strength all 4 extremities. Normal muscle bulk and tone. Sensory: Sensation intact all 4 extremities to light touch without reported paresthesias. Coordination: No dysmetria on finger to nose bilaterally. No truncal ataxia noted. Extremities: ?No swelling or tenderness, full range of motion Psych: ?Calm, alert and cooperative, appropriate behavior Medications Administered Discontinued Medications Generic Name Dose Route Start Last Admin Trade Name Garret PRN Reason Stop Dose Admin Acetaminophen 1,000 mg 07/31/24 14:32 07/31/24 15:18 Acetaminophen Oral Liquid 650 Mg/20.3 Ml Solution PO 07/31/24 14:33 1,000 mg ONCE ONE Administration Ketorolac Tromethamine 15 mg 07/31/24 14:32 07/31/24 15:18 Ketorolac Tromethamine 15 Mg/Ml Vial IM 07/31/24 14:33 15 mg ONCE ONE Administration Metoclopramide HCl 5 mg 07/31/24 14:32 07/31/24 15:18 Metoclopramide Hcl 5 Mg Tablet PO 07/31/24 14:33 5 mg ONCE ONE Administration Medical Decision Making Medical Decision Making [facility] Narrative: This is a pleasant 58-year-old male presenting with dizziness and headache. Differential diagnosis is broad but I do not suspect recurrent stroke sense of other neurologic symptoms or signs on exam or atypical headache. I do not suspect subarachnoid hemorrhage. I suspect his dizziness while standing may have an orthostatic component. He does not have a history of migraine headaches and has not seen a neurologist but I will treat with IM ketorolac, p.o. Reglan and p.o. acetaminophen. We will further evaluate for improvement. The patient's headache at time of treatment was an 8/10. One hundred thirty, the patient was re-evaluated and stands and ambulates without difficulty, has no recurrent dizziness and his headache is improved to a 5/10 which he feels is manageable. We will prescribe a short course of metoclopramide as needed for severe pain and the patient understands to return at any point in time if his symptoms worsen or he has a atypical headache or any other acute changes. He is positive for COVID-19 and is aware of this, not requiring any further medication, not exhibiting hypoxia. We also provided follow-up information for 1 of our neurologists and the patient does not currently have a neurologist. Admission/Observation Consideration of admission/observation: Escalation of care including admission/o bservation considered Lab Data [facility] Lab Attestation statement: I reviewed the patient's lab results. Labs: Lab Results 07/31/24 Range/Units 14:21 Influenza Type A (PCR) NEGATIVE (Negative) Influenza Type B (PCR) NEGATIVE (Negative) RSV RNA Qual (PCR) NEGATIVE (Negative) SARS-CoV-2 RNA (RT-PCR) POSITIVE A (Negative) Independent Interpretation I performed an independent interpretation of an: EKG Interpretation: Normal sinus rhythm at 86 beats per minute, unremarkable intervals, normal axis, no diagnostic ST or T-wave abnormalities, septal Q-waves, no prior for comparison. External Record Review External record reviewed: Inpatient record and Office record Discharge Plan Discharge Clinical Impression: Dizziness, COVID-19 Headache Qualifiers: Headache chronicity pattern: episodic headache Patient Disposition: Home, Self-Care Instructions: Acute Headache (DC), Dizziness (ED) Additional Instructions: You have been examined for a headache in the emergency department today. Please follow up with your primary care physician to ensure that you are recovering as expected. Although no evidence of an immediately life-threatening condition was found at the time of examination today, you should return immediately if you develop ANY new or worsening symptoms, especially sudden increase in pain, change in your vision, vomiting, fevers, or numbness/weakness in your arms or legs. When you return home, you should lie in a cool dark room and minimize sounds and other distractions while you rest. For worsening headache he can take metoclopramide up to twice a day. We recommend that you follow-up with a neurologist. Prescriptions: New metoclopramide HCl [Reglan] 5 mg tablet 5 mg PO BID PRN (Reason: headache) Qty: 14 0RF No Action aspirin [Adult Low Dose Aspirin] 81 mg tablet,delayed release (DR/EC) 81 mg PO DAILY atorvastatin 40 mg tablet 40 mg PO DAILY Qty: 30 5RF Referrals: Malvin Gonzalez MD [Physician] - Print Language: Estonian
[2024-07-31 15:15] LABS: Influenza A PCR NEGATIVE (Negative); Influenza B PCR NEGATIVE (Negative); Resp Syncy Virus RNA Qual PCR NEGATIVE (Negative); SARS COV2 PCR INHOUSE POSITIVE (Negative)
[2024-07-31] MEDS: Metoclopramide HCl 5 MG TABLET PO (15:18)
[2024-07-31] MEDS: Acetaminophen Oral Liquid 650 MG/20.3 ML SOLUTION 1000 MG PO (15:18)
[2024-07-31] MEDS: Ketorolac Tromethamine 15 MG/ML VIAL IM (15:18)
--- OUTSIDE RECORDS SUMMARY | 2024-07-31 16:09 | XMS_ITS | Clinical Summary ---
Author Organization [facility] Address [address] [place] [address] Care Team Providers Care Dimensional Integration Engineer Name Role Phone Smiley Parker MD Primary Care Provider [phone] Allergies No known active allergies Medications Medication [...] age to complete this topic Care Teams Dimensional Integration Engineer Relationship Specialty Start Date End Date Smiley Parker MD PCP - General Internal Medicine 03/26/22
--- OUTSIDE RECORDS SUMMARY | 2024-07-31 16:09 | XMS_ITS | Data Portability ---
Author Organization [place] [facility], [facility] Address [address] [place] [address] Care Team Providers Care Flake Or Shred Roll Operator Name Role Phone KathyBRIANA MCNALLY Primary Care [...] Address Organization Details Recorded Time Cervical lymphadenitis 9774238 Active 2023 ZHAO LAWS MD [address] [facility] [address], [place], [address] [place] [facility] 16:13:22 Problem Notes None recorded. Medical [...] Updated DateTime 04/16/2024 180.34 cm 36.4 kg/m2 095380.61 g Lalita Mathews [place] [facility] 04/16/2024 15:38:51 Social History None recorded. Functional Status None recorded. Mental Status None recorded. Family History Nothing Reported. Medical History Condition Response Hyperlipidemia Y Migraines Y Headaches Y Stroke Y Past Encounters Encounter ID Performer Location Encounter Start Date Encounter Closed Date Diagnosis/Indication Diagnosis SNOMED-CT Code Diagnosis ICD10 Code Diagnosis Note [id number] ZHAO LAWS MD [facility] [address] [address] 04/16/2024 15:35:24 04/16/2024 16:18:22 Cervical lymphadenitis 0309863 I88.9 Health Concerns Section Related Observation LastModified by Organization Detai ls LastModified Time None Recorded Concern Status LastModified by Organization Details LastModified Time None Recorded Advance Directives Directive None Recorded Payers Encounter Date Sequence Insurance Name Policy Number Policy Vega Covered Member ID Vega Member ID Guarantor Name 04/16/2024 1 [facility] [id number] 1 Gelacio Reyes [id number] Gelacio Reyes Notes Date Note Type Note [...] - 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
[2024-07-31 16:41] VITALS: BP 119/67; PULSE 91; RESP 16; TEMP 36.8; O2SAT 97
[2024-07-31 16:49] VITALS: BP 119/67; PULSE 91; RESP 16; TEMP 36.8; O2SAT 97
== END 2024-07-31 16:49 | disposition home or self-care (01) ==
PROVIDERS: Emergency Provider Emergency Medicine; PCP Internal Medicine
DX: U07.1 COVID-19 (principal); R42 Dizziness and giddiness; R51.9 Headache, unspecified; R94.31 Abnormal electrocardiogram [ECG] [EKG]; Z79.899 Other long term (current) drug therapy
CPT/HCPCS: 0241U; 93005; 96372; 99284; 99285; J1885

== ENCOUNTER → 2024-07-31 13:58 | Outpatient (BNV) | payer OTHER, SELFPAY | PROVIDERS: Emergency Provider Emergency Medicine; PCP Internal Medicine; Visit Provider Internal Medicine Cardiovascular Disease | DX: R94.31 Abnormal electrocardiogram [ECG] [EKG] (principal) | CPT/HCPCS: 93010 ==

== ENCOUNTER → 2024-08-07 14:23 | Outpatient (BNV) | payer OTHER, SELFPAY | PROVIDERS: PCP Internal Medicine; Referring Provider Internal Medicine Cardiovascular Disease; Visit Provider Internal Medicine | DX: D68.69 Other thrombophilia (principal); Z86.711 Personal history of pulmonary embolism | CPT/HCPCS: 99204 ==

== ENCOUNTER 2024-09-14 11:14 | Outpatient (AMB) | payer OTHER, SELFPAY ==
[2024-09-14 11:21] VITALS: BP 130/72; PULSE 80; BMI 32.3
--- NOTE | 2024-09-14 11:21 | A.OFFVIS_ITS ---
Vital Signs 09/14/24 11:21 Height 6 ft Weight 238 lb 1.588 oz BMI 32.3 BP 130/72 Blood Pressure Location Lt brachial Position Sitting Pulse 80 Intake Visit Reasons: 2mth f/up Intake Note: 2 month follow-up after echo and rose marie feeling good Rotary Drum Tanner Required: No Allergies No Known Allergies Allergy (Verified 07/31/24 14:16) Medication List - Last Reconciled 09/14/24 by Hari Borrego MD aspirin (Adult Low Dose Aspirin) 81 mg PO DAILY atorvastatin 40 mg PO DAILY metoclopramide HCl (Reglan) 5 mg PO BID PRN HPI Comments Details: Gelacio comes for follow-up. Had no new events. Event monitor showed no arrhythmias. Was seen by Hematology and his thrombophilic workup appears to be negative. Transesophageal echocardiogram did demonstrate PFO. He comes for follow-up. No cardiac symptoms otherwise. 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 Current occupational exposures/hazards: No Gender identity: Male Cognitive needs: No Hearing needs: No Vision needs: No Review of Systems Const Denies chills, Denies fatigue, Denies fever(s), Denies frequent falls, Denies weakness, Denies weight gain and Denies weight loss ENT Denies dizziness Card Denies chest pain, Denies leg edema, Denies lightheadedness, Denies palpitations, Denies dyspnea, Denies dyspnea on exertion, Denies orthopnea and Denies other (loss of consciousness) Resp Denies cough, Denies dyspnea and Denies dyspnea on exertion GI Denies hematochezia and Denies change in stool character Musc Denies abnormal gait, Denies muscle weakness, Denies numbness, Denies radiating pain into limb and Denies tingling Neuro Denies Abnormal speech present, Denies abnormal gait, Denies dizziness, Denies frequent falls, Denies numbness, Denies tingling and Denies weakness Endo Denies fatigue and Denies palpitations Physical Exam Vital Signs: Last Vital Signs Pulse 80 09/14/24 11:21 BP 130/72 09/14/24 11:21 BMI result Body Mass Index 32.3 Const General: cooperative, comfortable, no acute distress, alert, awake and Physically active Nutritional Appearance: obese Orientation/consciousness: patient oriented x3 Limitations: no limitations HEENT Head: Yes normocephalic and Yes atraumatic Neck Neck: Yes trachea midline, Yes supple and Yes no JVD Resp Effort & Inspection: normal respiratory effort Auscultation: clear to auscultation bilaterally Cardio Jugular venous distension: no JVD Palpation: normal PMI Rate: regular rate Rhythm: regular rhythm Heart sounds: S1 normal heart sound present, S2 normal heart sound present, no click, no gallops, no murmurs and no rubs GI Auscultation: normal bowel sounds Skin General skin exam: no rashes or lesions noted Neuro General: patient oriented x3 and no focal motor deficits Speech: No Abnormal speech present Extrem General: Yes no clubbing, cyanosis or edema Assessment & Plan Assessment & Plan (1) CVA (cerebral vascular accident): Code(s): I63.9 - Cerebral infarction, unspecified Category: Medical Qualifiers: CVA mechanism: unspecified Qualified Code(s): I63.9 - Cerebral infarction, unspecified Plan: CVA in this middle-aged man without any significant risk factors including hypertension diabetes or smoking preserved with CVA with the presence of a small PFO with normal thrombophilia workup as well as no evidence of atrial fibrillation on event monitor. I would switch him aspirin to Eliquis therapy given his prior history of thromboembolic disease. He has been evaluated by Hematology and they do not find any obvious clotting disorder at this point time. However given if his PFO and CVA I would protect him with Eliquis for now and stop aspirin and refer him for PFO closure to [facility] to . For further evaluation and 2nd opinion. (2) Thoracic aortic atherosclerosis: Code(s): I70.0 - Atherosclerosis of aorta Plan: Thoracic aortic atherosclerosis in the descending thoracic aorta beyond the carotid artery origin. Will require treatment with atorvastatin target goal LDL less than 70 mg/dL. Justin as above. Will follow up in the clinic in 6 months time, sooner p.r.n.. Thank you for allowing me to partake in his care Medications: New apixaban (Eliquis) 5 mg PO BID 60 tabs 2RF Coding Level of Care Code Est Pt Level 4 (10651) Complex EM visit Add On G2211 Diagnoses Cerebrovascular accident (CVA), unspecified mechanism I63.9 CVA mechanism: unspecified Thoracic aortic atherosclerosis I70.0
--- OUTSIDE RECORDS SUMMARY | 2024-09-14 12:50 | XMS_ITS | Data Portability ---
Author Organization [place] [facility], [facility] Address [address] [place] [address] Care Team Providers Care Marketing Programs Manager Name Role Phone KathyBRIANA MCNALLY Primary Care Provider [phone] Assessment Encounter Date Assessment Date Assessment LastModified [...] Address Organization Details Recorded Time Cervical lymphadenitis 6090901 Active 2023 ZHAO LAWS MD [address] [facility] [address], [place], [address] [place] [facility] 16:13:22 Problem Notes None recorded. Medical [...] Updated DateTime 04/16/2024 180.34 cm 36.4 kg/m2 382346.61 g Lalita Mathews [place] [facility] 04/16/2024 15:38:51 Social History None recorded. Functional Status None recorded. Mental Status None recorded. Family History Nothing Reported. Medical History Condition Response Migraines Y Hyperlipidemia Y Stroke Y Headaches Y Past Encounters Encounter ID Performer Location Encounter Start Date Encounter Closed Date Diagnosis/Indication Diagnosis SNOMED-CT Code Diagnosis ICD10 Code Diagnosis Note [id number] ZHAO LAWS MD [facility] [address] [address] 04/16/2024 15:35:24 04/16/2024 16:18:22 Cervical lymphadenitis 9439010 I88.9 Health Concerns Section Related Observation LastModified by Organization Detai ls LastModified Time None Recorded Concern Status LastModified by Organization Details LastModified Time None Recorded Advance Directives Directive None Recorded Payers Encounter Date Sequence Insurance Name Policy Number Policy Vega Covered Member ID Vega Member ID Guarantor Name 04/16/2024 1 [facility] [id number] 1 Gelacio Reyes [id number] Gelacio Reyes Notes Date Note Type Note [...] - 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 04/16/2024 16:14:19
--- OUTSIDE RECORDS SUMMARY | 2024-09-14 12:51 | XMS_ITS | Clinical Summary ---
Author Organization [facility] Address [address] [place] [address] Care Team Providers Care Patent Solicitor Name Role Phone Smiley Parker MD Primary Care Provider [phone] Allergies No known active allergies Medications Medication [...] age to complete this topic Care Teams Patent Solicitor Relationship Specialty Start Date End Date Smiley Parker MD PCP - General Internal Medicine 03/26/22
== END 2024-09-14 11:51 | disposition home or self-care (01) ==
PROVIDERS: PCP Internal Medicine; Visit Provider Internal Medicine Cardiovascular Disease
DX: I63.9 Cerebral infarction, unspecified (principal); I70.0 Atherosclerosis of aorta
CPT/HCPCS: 99214

== ENCOUNTER 2024-11-02 10:17 | Outpatient (AMB) | payer OTHER, SELFPAY ==
--- NOTE | 2024-11-02 10:25 | A.OFFPC_ITS ---
Vital Signs 11/02/24 10:30 Height 6 ft Weight 234 lb 2 oz BMI 31.7 BP 126/74 Blood Pressure Location Lt brachial Position Sitting Respiration 14 Pulse 83 Pulse Source Pulse Oximeter Pulse Oximetry (%) 98 Oxygen Delivery Method Room Air Intake Visit Reasons: surgery implants Intake Note: Discuss sleep apnea Recruitment Specialist Required: No Allergies No Known Allergies Allergy (Verified 11/02/24 10:28) Tobacco use date assessed: 11/02/24 Dental Screening Dental Screen Date: 11/02/24 Did you have a dental visit in the last 12 months?: Yes Did you have a dental problem in the last 6 months where you did not have access to dental care?: No Was dental information given to patient?: Patient has dentist HPI HPI Comments History of Present Illness Details 58 year old male with past medical histo ry of pulmonary emoblism, CVA, PFO, ROSARIO presenting for follow up ROSARIO: Sleep testing in Fall 2023. Saw ENT thereafter and noted to have narrow oropharynx. He did try mouth guard, changing sleeping position. He is unsure if he had his appointment with sleep medicine. He has lost 20 pounds and continues to have snoring, apnea, frequent awakening. He would like referral for consideration of inspire. CV: Following with cardiology. In regards to CVA-had holter-no arrythmia, had echo-small PFO, low normal EF. Neuro: He was hospitalized from January-January 15/2024 at [facility]. He presented with 2 day history of gait disturbance, dizziness. CTA head negative. bilateral mild upper cervical adenopathy noted. MRI brain showed small actue infarct in the left thalamus. Hypercoaguable work up negative. PFO as above Never had colonoscopy-cologuard ordered last visit ROS see HPI PHYSICAL EXAM: GENERAL: Alert and oriented x 3. NAD EYES: EOMI. Anicteric. HENT: Moist mucous membranes. No scleral icterus. LUNGS: Clear to auscultation bilaterally. CARDIOVASCULAR: Regular rate and rhythm. No murmur. No JVD. ABDOMEN: Soft, non-tender EXTREMITIES: No edema. Non-tender. SKIN: No rashes or lesions. Warm. NEUROLOGIC: No focal neurological deficits. CN II-XII grossly intact PSYCHIATRIC: Cooperative. 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 1. Little interest or pleasure in doing things: nearly every day 2. Feeling down, depressed, or hopeless: nearly every day 3. Trouble falling or staying asleep, or sleeping too much: not at all 4. Feeling tired or having little energy: more than half the days 5. Poor appetite or overeating: not at all 6. Feeling bad about yourself - or that you are a failure or have let yourself or your family down: not at all 7. Trouble concentrating on things, such as reading the newspaper or watching television: more than half the days 8. Moving or speaking so slowly that other people could have noticed. Or the opposite - being so fidgety or restless that you have been moving around a lot more than usual: more than half the days 9. Thoughts that you would be better off or of hurting yourself in some way: not at all Total score: 12 Depression Screening Interpretation: Positive Depression Screening Follow-up: Declines treatment Depression Screening Done: Yes 46616 - PHQ-9 Billing: Yes Source: Developed by Drs. Narinder Doe, Emeli Tai, Ismael Maldonado and colleagues, with an educational adam from [employer]. Thrive Questionnaire Date Thrive assessed: 11/02/24 I am a: Patient What is your living situation today?: I have a steady place to live Within the past 12 months, did the food you bought not last and you didn't have the money to get more?: Never true Within the past 12 months, did you worry whether your food would run out before you got money to buy more?: Never true Do you have trouble paying for medicines?: No Do you have trouble getting transportation to medical appointments?: No Do you have trouble paying your heating and electricity bill?: No Do you have trouble taking care of your child, family member or friend?: No Do you have trouble with day-to-day activities such as bathing, preparing meals, shopping, managing finances, etc.?: No Are you currently unemployed and looking for a job?: No Are you interested in more education?: No Please select the resources that you would like help with: None Currently or been in a relationship where the following occur: I choose not to answer THRIVE Score: 0 AUDIT C Alcohol Use Questionnaire (AUDIT-C) 1. How often do you have a drink containing alcohol?: 2-4 times a month 2. How many drinks containing alcohol do you have on a typical day when you are drinking?: 1 or 2 3. How often do you have six or more drinks on one occasion?: Never Total Score: 2 RAMONITA-7 AMB Questionnaire RAMONITA-7 Date RAMONITA - 7 assessed: 11/02/24 Feeling nervous, anxious, or on edge: 0 = Not at all Not being able to stop or control worryin = Not at all Worrying too much about different things: 0 = Not at all Trouble relaxin = Not at all Being so restless that it is hard to sit still: 0 = Not at all Becoming easily annoyed or irritable: 0 = Not at all Feeling afraid as if something awful might happen: 0 = Not at all Total RAMONITA-7 score (0-4 normal; 5-9 mild; 10-14 moderate; 15-21 severe): 0 Source: Developed by Drs. Narinder Doe, Emeli Tai, Ismael Maldonado and colleagues, with an educational adam from [employer]. RAMONITA-7 Assessment Billing RAMONITA-7 Assessment Tool: RAMONITA-7 Assessment 27864 Physical exam (Primary Care) Vital Signs: Last Vital Signs Pulse 83 11/02/24 10:30 Resp 14 11/02/24 10:30 BP 126/74 11/02/24 10:30 Pulse Ox 98 11/02/24 10:30 Oxygen Delivery Method Room Air 11/02/24 10:30 BMI result Body Mass Index 31.7 Tobacco/Smoking Status: Tobacco use Status Tobacco use date assessed 11/02/24 11/02/24 10:33 Patient Tobacco Use Status Never used Tobacco 11/02/24 10:27 e-Cigarette/Vaping Use Never Used 11/02/24 10:27 PHQ-9: PHQ-9 Score PHQ-9: Total score 12 11/02/24 11:46 Depression Screening Interpretation: Positive Depression Screening Follow-up: Declines treatment Thrive Assessment: Date of Thrive Assessment Date Thrive assessed 11/02/24 11/02/24 10:33 Currently or been in a relationship where the following occur: I choose not to answer Coding Level of Care Code Est Pt Level 4 (67244) Diagnoses ROSARIO (obstructive sleep apnea) G47.33 Abnormal echocardiogram R93.1 Cerebrovascular accident (CVA), unspecified mechanism I63.9 CVA mechanism: unspecified Additional Codes RAMONITA-7 Assessment Billing - RAMONITA-7 Assessment Tool: RAMONITA-7 Assessment 56193 ([id number]) PHQ-9 - 14323 - PHQ-9 Billing: Yes ([id number]) Assessment & Plan Assessment & Plan (1) ROSARIO (obstructive sleep apnea): Code(s): G47.33 - Obstructive sleep apnea (adult) (pediatric) Category: Medical (2) Abnormal echocardiogram: Code(s): R93.1 - Abnormal findings on diagnostic imaging of heart and coronary circulation Category: Medical (3) CVA (cerebral vascular accident): Code(s): I63.9 - Cerebral infarction, unspecified Category: Medical Qualifiers: CVA mechanism: unspecified Qualified Code(s): I63.9 - Cerebral infarction, unspecified Plan CVA-referred to cardiology for PFO. continue eliquis ROSARIO-Referral to plastic ENT and sleep Cologuard was ordered Orders: Referrals Plastic Surgery Referral G47.33 - Obstructive sleep apnea (adult) (pediatric), R06.81 - Apnea, not elsewhere classified, R06.83 - Snoring Sleep Medicine Referral G47.33 - Obstructive sleep apnea (adult) (pediatric) Ear/Nose/Throat Referral G47.33 - Obstructive sleep apnea (adult) (pediatric)
[2024-11-02 10:30] VITALS: BP 126/74; PULSE 83; RESP 14; O2SAT 98; BMI 31.7
--- OUTSIDE RECORDS SUMMARY | 2024-11-02 11:57 | XMS_ITS | Clinical Summary ---
Author Organization [facility] Address [address] [place] [address] Care Team Providers Care Horticulturalist Name Role Phone Smiley Parker MD Primary Care Provider [phone] Allergies No known active allergies Medications Medication [...] age to complete this topic Care Teams Horticulturalist Relationship Specialty Start Date End Date Smiley Parker MD PCP - General Internal Medicine 03/26/22
--- OUTSIDE RECORDS SUMMARY | 2024-11-02 11:57 | XMS_ITS | Data Portability ---
Author Organization [place] [facility], Allergy Address [address] [place] [id number] Care Team Providers Care Idea Worker Name Role Phone KathyBRIANA MCNALLY Primary Care [...] Address Organization Details Recorded Time Cervical lymphadenitis 6222719 Active 2023 ZHAO LAWS MD [address] [facility] [address], [place], [address] [place] [facility] 16:13:22 Problem Notes None recorded. Medical [...] Updated DateTime 04/16/2024 180.34 cm 36.4 kg/m2 077876.61 g Lalita Mathews [place] [facility] 04/16/2024 15:38:51 Social History None recorded. Functional Status None recorded. Mental Status None recorded. Family History Nothing Reported. Medical History Condition Response Hyperlipidemia Y Migraines Y Headaches Y Stroke Y Past Encounters Encounter ID Performer Location Encounter Start Date Encounter Closed Date Diagnosis/Indication Diagnosis SNOMED-CT Code Diagnosis ICD10 Code Diagnosis Note [id number] ZHAO LAWS MD [facility] [address] [address] 04/16/2024 15:35:24 04/16/2024 16:18:22 Cervical lymphadenitis 8507586 I88.9 Health Concerns Section Related Observation LastModified by Organization Detai ls LastModified Time None Recorded Concern Status LastModified by Organization Details LastModified Time None Recorded Advance Directives Directive None Recorded Payers Encounter Date Sequence Insurance Name Policy Number Policy Vega Covered Member ID Vega Member ID Guarantor Name 04/16/2024 1 [facility] [id number] 1 Gelacio Reyes [id number] Gelacio Reyes Notes Date Note Type Note [...] - 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
== END 2024-11-02 13:53 | disposition home or self-care (01) ==
LOC: HO.HMCFM 10:18
PROVIDERS: PCP Internal Medicine; Visit Provider Internal Medicine
DX: G47.33 Obstructive sleep apnea (adult) (pediatric) (principal); R93.1 Abnormal findings on diagnostic imaging of heart and coronary circulation; I63.9 Cerebral infarction, unspecified

== ENCOUNTER → 2024-11-02 10:17 | Outpatient (BNVA) | payer OTHER, SELFPAY | PROVIDERS: PCP Internal Medicine; Visit Provider Internal Medicine | DX: G47.33 Obstructive sleep apnea (adult) (pediatric) (principal); R93.1 Abnormal findings on diagnostic imaging of heart and coronary circulation; Z86.73 Personal history of transient ischemic attack (TIA), and cerebral infarction without residual deficits; Z86.711 Personal history of pulmonary embolism; Z79.01 Long term (current) use of anticoagulants | CPT/HCPCS: 96127 ==